=== PATIENT | male | born 1940 | race Caucasian/White ===

== ENCOUNTER → 2016-12-14 | Outpatient (CLI) | payer OTHER ==
[~2016-12-14] MED LIST: BENADRYL25 M1 PO; FLEXERIL PO; IBUPROFEN PO; IBUPROFEN800 MG PO; IMMODIUM AD PO; INDOCIN SR75 MG PO; LORTAB 7.5-5001 TAB PO; MEDROL DOSEPAK4 MG PO; METOPROLOL SUCC25 MG PO; METOPROLOL TAR25 MG PO; NORVASC PO; PHENERGAN12.5 MG PO; PROTONIX PO; SUDAFED PE COLD1 TA1 PO; SUDAFED PO; TOPROL XL PO; TYLENOL325 M1 PO; ZOFRAN PO
--- NOTE | ~2016-12-14 | MR113 ---
[facility] A Service of [facility] RADIOLOGY TEXT RESULTS PATIENT: DAYSI GONZALEZ LOCATION: [facility] : 40 UNIT #: [id number] AGE: [address]: Jose M Almazan MD SEX: M ORDER DR: [id number] [address] [id number] MR#: [id number] Acc #: [id number] NAME: DAYSI GONZALEZ : 1940 SEX: M STUDY DATE/TIME: 12/14/2016 10:59 UNIT: [facility] ROOM: STUDY DESCRIPTION: MR Lumbar Wo Contrast Attending Physician: Jose M Almazan M.D. Referring Physician: Jose M Almazan M.D. Ordering Physician: Jose M Almazan M.D. Primary Care Physician: Jose M Almazan M.D. MRI CENTER REPORT This report is preliminary unless electronic signature is present. EXAM MRI of the lumbar spine without contrast dated 12/14/2016. COMPARISON MRI lumbar spine without contrast dated 10/19/2013. HISTORY Low back pain with bilateral lower extremity weakness. Legs feel wobbly for about 1.5 months. FINDINGS Multisequence multiplanar imaging of the lumbar spine was obtained without contrast. Vertebral body heights and alignment are preserved. 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 Conus terminates at T12-L1. Signal of conus and cauda equina are within normal limits. Pre and paravertebral soft tissues do not demonstrate any significant abnormality. L1-2: Concentric disc bulge and mild bilateral facet changes. Borderline-sized canal without any significant neural foraminal narrowing. L2-3: Concentric disc bulge with borderline size to mild canal stenosis. No significant neural foraminal narrowing. Moderate left facet hypertrophic change. L3-4: Concentric mild to moderate disc bulge with superimposed small central protrusion. Mild bilateral facet changes are noted, worse on the left. Mild inferior bilateral neural foraminal encroachment is seen. L4-5: Moderate disc bulge which is prominent in bilateral foraminal to extraforaminal regions particularly in the left. Mild to moderate left and mild right neural foraminal narrowing are noted with moderate canal stenosis and [id number] bilateral facet hypertrophic changes. [facility]. [facility] A Service of [facility] RADIOLOGY TEXT RESULTS PATIENT: DAYSI GONZALEZ LOCATION: [facility] : 40 UNIT #: [id number] AGE: [address]: Jose M Almazan MD SEX: M ORDER DR: Mild to moderate left and mild right lateral recess stenosis. L5-S1: Disc osteophyte complex with mild bilateral facet changes. No significant canal stenosis or neural foraminal narrowing. There is an infrarenal abdominal aortic aneurysm measuring 3.5 x 3.9 cm at the level of L3. IMPRESSION 1. Degenerative changes are noted at multiple levels. 2. It is relatively worse at L4-5 followed by L3-4 and L2-3. 3. Infrarenal abdominal aortic aneurysm measuring 3.5 x 3.9 cm. Correlate prior abdominal imaging. Dictated by... Daniel Funk M.D. THIS IS AN ELECTRONICALLY VERIFIED REPORT Daniel Funk M.D. at 12/16/2016 3:23 PM CPR/rnr TD: 12/15/2016 17:41 JOB #: [id number] MRI CENTER REPORT Page 1 of 1
== END | disposition home or self-care (01) ==
LOC: SMRI 10:39
DX: R29.898 Other symptoms and signs involving the musculoskeletal system (principal); M47.896 Other spondylosis, lumbar region; I71.4 Abdominal aortic aneurysm, without rupture
CPT/HCPCS: 72148